=== PATIENT | male | born 1965 | race Caucasian/White ===

== ENCOUNTER 2021-08-21 13:30 | Emergency (ER) | payer BC, SELFPAY ==
[2021-08-21 13:53] VITALS: BP 162/115; PULSE 88; RESP 18; TEMP 36.8; O2SAT 100
--- NOTE | 2021-08-21 13:53 | ED.GENADULT ---
HPI - General Adult General Chief complaint: Unspecified Stated complaint: Medication Management Time Seen by Provider: 08/21/21 13:50 Source: patient Mode of arrival: ambulatory Limitations: no limitations History of Present Illness HPI narrative: Mono Messina is a 53 yo male with a PMH of diabetes, HTN, depression, who comes to express care for medication refills. He has not found a doctor that will take his current insurance. BP is elevated today on this visit. Patient is out of amlodipine and glyburide since May. Patient states he has a primary care physician but he does not take his insurance; has not taken medication since being in May Related Data Home Medications Medication Instructions Recorded Confirmed amlodipine-benazepril 1 cap PO DAILY 08/21/21 08/21/21 duloxetine 30 mg PO DAILY 08/21/21 08/21/21 glimepiride 1 mg PO DAILY 08/21/21 08/21/21 metformin 1,000 mg PO BID 08/21/21 08/21/21 Allergies Allergy/AdvReac Type Severity Reaction Status Date / Time No Known Allergies Allergy Verified 08/21/21 13:50 Review of Systems Review of Systems: CONSTITUTIONAL: Denies fever, chills, sweats. EYES: Denies visual changes, redness, discharge. ENT: Denies rhinorrhea, congestion, sore throat, otalgia. CARDIOVASCULAR: Denies chest pain, palpitations, edema. RESPIRATORY: Denies dyspnea, wheezing, cough GASTROINTESTINAL: Denies abdominal pain, nausea, vomiting, diarrhea. GENITOURINARY: Denies dysuria, hematuria, abnormal discharge SKIN: Denies rash or itching. NEUROLOGIC: Denies numbness, or focal weakness. PSYCHIATRIC: Denies anxiety or depression. Patient here for medication refill PMFSH Past Medical History Medical History Depression Diabetes HTN (hypertension) Comments At time of signature, I agree with nursing past medical, surgical, social and family history. There is no relevant family history pertinent to the presenting complaint. Exam Narrative: GENERAL: This is a well-nourished, well-developed patient, anxious HEAD: normocephalic, atraumatic. EYES: P Sclera clear/white. Vision is grossly intact. EARS: External ears normal, Hearing grossly intact. NOSE: External nose normal without nasal discharge, nares without redness, no rhinorrhea. THROAT: Mucous membranes moist, NECK: Neck supple, non-tender CARDIOVASCULAR: Regular rate and rhythm without murmurs, gallops, or rubs. RESPIRATORY: Clear to auscultation. Breath sounds equal bilaterally. No wheezes, rales, or rhonchi. GASTROINTESTINAL: Not done SKIN: warm, intact with no suspicious lesions or rash, good texture and turgor. NEURO: awake, alert, and oriented to person, place and time. There were no obvious focal neurologic abnormalities. Steady gait EXTREMITIES: Normal range of motion. BACK: Nontender without deformity Course Course Emergency Course: Patient here for medication refill Amlodipine+ Benzapril, amaryl,refilled for 1 month, metformin refilled for 2 weeks (has pills left) Given list of physicans to try tp get appt Level of Care: Express Care Visit Vital Signs Vital signs: Vital Signs Temperature 98.2 F 08/21/21 13:53 Pulse Rate 88 08/21/21 13:53 Respiratory Rate 18 08/21/21 13:53 Blood Pressure 162/115 H 08/21/21 13:53 Pulse Oximetry 100 08/21/21 13:53 Temperature 98.2 F 08/21/21 13:53 Pulse Rate 88 08/21/21 13:53 Respiratory Rate 18 08/21/21 13:53 Blood Pressure 162/115 H 08/21/21 13:53 Pulse Oximetry 100 08/21/21 13:53 Medical Decision Making Differential Diagnosis Differential Diagnosis: Medication refill Vital Signs Vital Signs: Vital Signs Temperature 98.2 F 08/21/21 13:53 Pulse Rate 88 08/21/21 13:53 Respiratory Rate 18 08/21/21 13:53 Blood Pressure 162/115 H 08/21/21 13:53 Pulse Oximetry 100 08/21/21 13:53 Temperature 98.2 F 08/21/21 13:53 Pulse Rate 88 08/21/21 13:53 Respiratory R
== END 2021-08-21 14:15 | disposition home or self-care (01) ==
PROVIDERS: Emergency Provider Nurse Practitioner
DX: Z76.0 Encounter for issue of repeat prescription (principal)
CPT/HCPCS: 99202; 99203; G0463

== ENCOUNTER 2022-09-16 09:53 | Outpatient (CLI) | payer BC, MEDICAID, SELFPAY ==
[2022-09-16 13:11] LABS: LDL Cholesterol Direct 83 mg/dL
[2022-09-16 13:18] LABS: Alanine Aminotransferase 36 U/L (6-50); Albumin Level 4.1 g/dL (3.5-5.1); Alkaline Phosphatase 106 U/L (38-126); Anion Gap 8 mmol/L (8-16); Aspartate Amino Transferase 37 U/L (17-59); Bilirubin,Total 0.6 mg/dL (0.2-1.3); Blood Urea Nitrogen 14 mg/dL (9-20); Calcium 8.1 mg/dL (8.4-10.2); Carbon Dioxide 28 mmol/L (22-30); Chloride 97 mmol/L (98-107); Cholesterol 176 mg/dL (0-200); Estimated Glomerular Filt Rate > 60; Glucose 252 mg/dL (65-110); HDL Direct 46 mg/dL; Potassium 3.7 mmol/L (3.4-5.0); Sodium 133 mmol/L (137-145)
[2022-09-16 13:26] LABS: Prostate Specific Antigen 0.6 ng/mL (< OR = 4.0)
[2022-09-16 13:39] LABS: Triglycerides 253 mg/dL (<150)
[2022-09-16 20:40] LABS: Hemoglobin A1C 7.3 % (<5.7)
== END 2022-09-16 09:54 | disposition home or self-care (01) ==
LOC: ANHGOSHLAB 09:55
PROVIDERS: PCP Family Medicine; Visit Provider Family Medicine
DX: E11.9 Type 2 diabetes mellitus without complications (principal); I10 Essential (primary) hypertension; Z12.5 Encounter for screening for malignant neoplasm of prostate; Z13.220 Encounter for screening for lipoid disorders
CPT/HCPCS: 36415; 80053; 80061; 83036; 84153; G0103

== ENCOUNTER 2023-03-23 14:31 | Outpatient (CLI) | payer BC, SELFPAY ==
[2023-03-23 15:20] LABS: Hematocrit 37.1 % (42.0-52.0); Hemoglobin 12.1 g/dL (14.0-18.0); Mean Corpuscular HGB Conc 32.6 g/dl (32-36); Mean Corpuscular Hemoglobin 26.4 pg (26-34); Mean Platelet Volume 9.3 fl (7.4-10.4); Platelet Count Result 275 k/mm3 (150-375); Red Blood Count 4.58 M/mm3 (4.6-6.20); Red Cell Distribution Width 15.4 % (11.5-14.5); White Blood Count 5.6 K/mm3 (4.5-10.0)
[2023-03-23 15:32] LABS: Alanine Aminotransferase 53 U/L (6-50); Albumin Level 4.4 g/dL (3.5-5.1); Alkaline Phosphatase 114 U/L (38-126); Anion Gap 9 mmol/L (8-16); Aspartate Amino Transferase 49 U/L (17-59); Bilirubin,Total 0.7 mg/dL (0.2-1.3); Blood Urea Nitrogen 8 mg/dL (9-20); Calcium 9.4 mg/dL (8.4-10.2); Carbon Dioxide 27 mmol/L (22-30); Chloride 100 mmol/L (98-107); Estimated Glomerular Filt Rate > 60; Glucose 174 mg/dL (65-110); Potassium 3.6 mmol/L (3.4-5.0); Sodium 136 mmol/L (137-145)
[2023-03-23 15:37] LABS: INR 0.9; Prothrombin Time 12.8 Seconds (11.1-14.7)
[2023-03-23 16:12] LABS: HIV 1/2 Ab P24 Ag Result Negative (Negative)
[2023-03-23 16:39] LABS: Folic Acid 6.1 ng/mL (2.76->20)
[2023-03-23 17:13] LABS: Iron 54 ug/dL (49-181)
[2023-03-23 17:28] LABS: Percent Iron Saturation 12 % (20-50)
[2023-03-23 18:02] LABS: Hepatitis B Surface Antigen Negative (Negative)
[2023-03-23 18:08] LABS: HAV RESULT Negative (Negative); Hepatitis B Core IgM Result Negative (Negative)
[2023-03-23 18:42] LABS: Hepatitis B Surface Anti Res Positive; Hepatitis C Virus Antibody Negative (Negative)
[2023-03-25 20:08] LABS: Hepatitis A Antibody Total Nonreactive (Nonreactive)
[2023-03-26 09:29] LABS: Alpha-1-Antitrypsin, QN 179 mg/dL (83-199); Ceruloplasmin 34 mg/dL (18-36)
[2023-03-27 21:10] LABS: Actin Antibody (IgG) <20 U (<20)
[2023-03-28 20:25] LABS: Mitochondrial (M2) Ab (IgG) <=20.0 U (<=20.0)
[2023-03-29 20:51] LABS: LKM 1 Antibody <=20.0 U (<=20.0)
[2023-03-30 15:02] LABS: ALT 37 U/L (9-46); Alpha Fetoprotein Tumor Marker 4.2 ng/mL (<6.1); Alpha-2-Macroglobulin 198 mg/dL (106-279); Apolipoprotein A1 171 mg/dL (94-176); Fibrosis Stage F0; GGT 115 U/L (3-85); Haptoglobin 204 mg/dL (43-212); Necroinflammat Act Grade A0; Total Bilirubin 0.1 mg/dL (0.2-1.2)
== END 2023-03-23 14:32 | disposition home or self-care (01) ==
LOC: ANHLAB 14:33
PROVIDERS: PCP Family Medicine; Visit Provider Nurse Practitioner
DX: K74.60 Unspecified cirrhosis of liver (principal); R93.2 Abnormal findings on diagnostic imaging of liver and biliary tract; R16.1 Splenomegaly, not elsewhere classified; D73.89 Other diseases of spleen; K92.0 Hematemesis; R93.89 Abnormal findings on diagnostic imaging of other specified body structures
CPT/HCPCS: 36415; 80053; 80074; 81596; 82103; 82105; 82390; 82607; 82728; 82746; 83520; 83540; 83550; 85027; 85610; 86038; 86364; 86376; 86703; 86706; 86708; G0432

== ENCOUNTER 2023-04-04 01:39 | Day surgery (SDC) | payer BC, SELFPAY ==
[2023-03-25 14:14] VITALS: BMI 30.5
--- NOTE | 2023-04-01 10:47 | SUR.PREOP ---
Patient called regarding upcoming procedure. Reviewed preop instructions, appointment times, and procedure prep.
[2023-04-04 07:53] VITALS: BP 134/103; PULSE 102; RESP 18; TEMP 36.3; O2SAT 99; BMI 29.8
[2023-04-04 07:57] LABS: Glucose Point of Care 129 mg/dl (65-105)
[2023-04-04] MEDS: LACTATED RINGERS 1,000 ML 150 ML IV CONT (08:08)
--- NOTE | 2023-04-04 08:48 | WPDHPUPDATE1 ---
History and Physical Update Update Date/Time: 04/04/23 08:48 History and Physical has been reviewed, including an updated exam of the patient. There are NO changes in the patient's condition. Risks, benefits, and alternatives have been discussed and questions answered. Patient agrees to proceed with procedure.
--- NOTE | 2023-04-04 08:49 | WPDANESEPPF ---
Anes - Initial Pre Proc Eval Procedure: Operation Date: 04/04/23 09:00 Proposed Procedures p Esophagogastroduodenoscopy & Colonoscopy - Noah Wisdom MD Date/Time: 04/04/23 08:49 Surgeon: Noah Wisdom MD Pre Op Diagnosis: neoplasm screening,Hematemesis Patient Data Age: 57 Gender: M Height: 1.7 m Weight: 86.4 kg Last Vital Signs Temp 97.4 F L 04/04/23 07:53 Pulse 102 H 04/04/23 07:53 Resp 18 04/04/23 07:53 BP 134/103 H 04/04/23 07:53 Pulse Ox 99 04/04/23 07:53 O2 Del Method Room Air 04/04/23 07:53 Allergies Allergy/AdvReac Type Severity Reaction Status Date / Time No Known Allergies Allergy Verified 04/04/23 07:52 Home Medications Medication Instructions Recorded Confirmed Type glimepiride 1 mg tablet 1 mg PO DAILY #90 tabs 10/07/22 04/04/23 Rx metformin 500 mg tablet 1,000 mg PO BID #360 tabs 12/27/22 04/04/23 Rx empagliflozin 10 mg tablet 10 mg PO DAILY #30 tabs 01/18/23 04/04/23 Rx (Jardiance) sildenafil 25 mg tablet 25 mg PO DAILY PRN sexual activity 02/14/23 04/04/23 Rx #30 tabs pantoprazole 40 mg tablet,delayed 40 mg PO BID #60 tabs 03/23/23 04/04/23 Rx release amlodipine 5 mg-benazepril 10 mg 1 cap PO DAILY #30 caps 03/25/23 04/04/23 Rx capsule duloxetine 30 mg capsule,delayed 30 mg PO DAILY #30 caps 03/25/23 04/04/23 Rx release Laboratory Tests 04/04/23 07:55 POC Capillary Glucose 129 H mg/dl (65-105) Patient hx anesthesia problems: none Family hx anesthesia problems: none Results Review: All pre-operative results and documents have been reviewed as part of the pre-operative evaluation. [facility] Past Medical History Medical History (Updated 03/23/23 @ 14:54 by Yanira Day APRN) Abnormal finding on imaging Abnormal finding on imaging of liver Alcohol abuse BMI 29.0-29.9,adult Coffee ground emesis Colon cancer screening Depression Diabetes Dysphagia GERD (gastroesophageal reflux disease) Hiatal hernia HTN (hypertension) Splenic lesion Splenomegaly Family History Family History (Updated 03/23/23 @ 13:42 by MELITA Stubbs) Father Diabetes mellitus Cerebrovascular accident CHF (congestive heart failure) Obesity Mother Diabetes mellitus Tobacco abuse Sibling Breast cancer Social History Social History (Updated 03/23/23 @ 13:43 by MELITA Stubbs) Years smoked: 30 Smoking status: Light tobacco smoker Tobacco type: cigarettes Second hand tobacco smoke exposure: Yes Additional smoking assessment comments: smokes when drinking; 0.5-1 pack per week Alcohol intake: current Drinks per week: 14 Alcohol use details: 6-8 beers plus vodka two times weekly Substance use: never Substance use type: does not use Lack of Transportation: No Lack of Food: Never True Current Housing: I Have Housing Concerned About Future Housing: No Difficulty Paying Gas/Electric Bills: No Difficulty Paying for Meds: No Currently Unemployed: No Education: High School Diploma/GED Difficulty w/ Childcare or Family Care: No Living arrangements: with friend(s) Additional living arrangements comments: lives with girlfriend Tesha Occupation/Education: occupation Additional occupation/education comments: [employer] Gender identity (if verbalized by the patient): Male Spiritual care concerns: No Anes - Eval Final PreProcedure Day of Procedure 04/04/23 08:49 Patient weight: normal Heart: regular rate and rhythm Lungs: clear to auscultation Airway: Mallampati scale class II Neurological: alert and oriented Last oral intake: >/= 8 hours ASA classification: III Emergent: no Anesthetic plan: proceed Anesthesia type and monitoring: general GIVS and standard monitoring Results Review: All pre-operative results and documents have been reviewed as part of the pre-operative evaluation. Informed Consent: The meir
--- NOTE | 2023-04-04 09:14 | SUR.OPER ---
EGD: [phone] [phone] COLON: [id number]
[2023-04-04 09:15] VITALS: BP 113/85; PULSE 97; RESP 27; O2SAT 98
[2023-04-04 09:25] VITALS: BP 116/89; PULSE 90; RESP 20; O2SAT 95
[2023-04-04 09:35] VITALS: BP 138/99; PULSE 77; RESP 17; O2SAT 99
== END 2023-04-04 09:40 | disposition home or self-care (01) ==
PROVIDERS: PCP Family Medicine; Visit Provider Internal Medicine Gastroenterology
PROC: 0DJ08ZZ Inspection of Upper Intestinal Tract, Via Natural or Artificial Opening Endoscopic (ICD-10-PCS; CPT 43235; principal; 2023-04-04 09:00)
DX: Z12.11 Encounter for screening for malignant neoplasm of colon (principal); K29.50 Unspecified chronic gastritis without bleeding; K21.00 Gastro-esophageal reflux disease with esophagitis, without bleeding; K57.30 Diverticulosis of large intestine without perforation or abscess without bleeding; K64.8 Other hemorrhoids; K44.9 Diaphragmatic hernia without obstruction or gangrene; F32.A Depression, unspecified; E11.9 Type 2 diabetes mellitus without complications; I10 Essential (primary) hypertension; F17.210 Nicotine dependence, cigarettes, uncomplicated; Z79.84 Long term (current) use of oral hypoglycemic drugs; Z82.49 Family history of ischemic heart disease and other diseases of the circulatory system; Z80.3 Family history of malignant neoplasm of breast
CPT/HCPCS: 43239; 45385; 82948; 88305; J2704; J7120

== ENCOUNTER 2024-08-11 10:24 | Outpatient (CLI) | payer OTHER, SELFPAY ==
--- OUTSIDE RECORDS SUMMARY | 2024-08-11 10:27 | XMS_ITS | Clinical Summary ---
Author Organization [facility] Address [facility] [place] [address] Care Team Providers Care Chemical Operator Name Role Phone None, Provider MD Primary Care Provider Unavaila ble Allergies No known active allergies Medications diclofenac sodium (VOLTAREN) 1 % gelIndications:Arthra lgia of right acromioclavicular joint,Shoulder blade pain Apply 2 g topically 4 (four) times daily. 2 g 08/05/19 25 Active lidocaine 4 % patch Place 1 patch onto the skin daily for 5 days. Remove & Discard patch within 12 hours or as directed by 5 patch 08/05/19 25 025 Encounters Date Type Department Care Team Description 08/04/2024 10:04 AM CDT - 08/04/2024 1:25 PM CDT Emergency [facility] Emergency Room [address] [place] [address] Pily Pagan MD Shoulder Pain Discharge Disposition: Home or Self Care (Routine Discharge) 08/04/2024 Travel from Last 3 Months Social History Tobacco Use Types Packs/Day Years Used Date Smoking Tobacco: Some Days Cigarettes Smokeless Tobacco: Never Tobacco Cessation:Ready to Q uit: Not Asked; Counseling Given: Not Answered Alcohol Use Standard Drinks/Week Comments Yes 0 (1 standard drink = 0.6 oz pur e alcohol) socially Sex and Gender Information Value Date Recorded Sex Assigned at Male 08/04/2024 10:24 AM CDT Legal Sex Male 7:02 PM CDT Gender Identity Male 08/04/2024 10:24 AM CDT Sexual Orientation Not on file Last Filed Vital Signs Vital Sign Reading Time Taken Comments Blood Pressure 164/106 08/04/2024 10:18 AM CDT Pulse 105 08/04/2024 10:18 AM CDT Temperature 36.7 C (98 F) 08/04/2024 10:18 AM CDT Respiratory Rate 16 08/04/2024 10:18 AM CDT Oxygen Saturation 98% 08/04/2024 10:18 AM CDT Inhaled Oxygen Concentration - - Weight 86.2 kg (190 lb) 08/04/2024 10:18 AM CDT Height 172.7 cm (5' 8 ) 08/04/2024 10:18 AM CDT Body Mass Index 28.89 08/04/2024 10:18 AM CDT Plan of Treatment Health Maintenance Due Date Last Done Comments Colorectal Cancer Screening Colonoscopy (10 Years) 1965 Annual Physical 1968 Pneumococcal Vaccine: Pediat rics (0 to 5 Years) and At-Risk Patients (6 to 64 Years) (1 of 2 - PCV) 11/03/1971 Hepatitis C 11/03/1983 DTaP, Tdap and Td Vaccines ( 1 - Tdap) 1984 Hepatitis B Vaccines (1 of 3 - 19+ 3-dose series) 1984 Zoster Vaccines (1 of 2) 11/03/2015 COVID-19 Vaccine (2 - 2023-2 5 season) 2024 07/22/2020 Influenza Adult (#1) 2024 PHQ-2 (Physician Antigo) 05/16/2024 Meningococcal B Vaccine Aged Out No l onger eligible based on patient's age to complete this topic Meningococcal Vaccine Aged Out No lady brittnee eligible based on patient's age to complete this topic RSV Immunizations Under 20 Months Aged Out No longer eligible based on patient's age to complete this topic Procedures Procedure Name Priority Date/Time Associated Diagnosis Comments D-DIMER, QUANTITATIVE Routine 08/04/2024 11:08 AM CDT XR CHEST PA+LAT STAT 08/04/2024 10:42 AM CDT XR SHOULDER RT MIN 2V STAT 08/04/2024 10:42 AM CDT from Last 3 Months Results * D-DIMER, QUANTITATIVE (08/04/2024 11:08 AM CDT) D-DIMER 458 0 - 500 ng{FEU}/mL 08/04/2024 12:22 PM CDT [facility] Comment: D-Dimer values less than or equal to 500 ng/mL FEU have a negative predictive value of >95% for exclusion of deep vein thrombosis and pulmonary embolism. In patients over 50 (who tend to have higher normal baseline D-Dimer values), recent studies suggest age-adjusted D-Dimer cutoff values (calculated as: age [years] x 10 ng/mL) result in equivalent outcomes and no additional false negative findings. 08/04/2024 11:0 8 AM CDT us Pily aPgan MD LABORATORY Final Resul t [facility] [address] [place] [address], [place] [phone] * XR CHEST PA+LAT (08/04/2024 10:42 AM CDT) Anatomical Region Laterality Modality Chest Radiographic Viola ging 08/04/2024 10:4 4 AM CDT Impressions 08/04/2024 10:45 AM CDT IMPRESSION: 1) No radiographic evidence of active disease the chest. Ordered By: PILY PAGAN Interpreted By: Luis Enrique Licea MD, 08/04/2024 10:44 AM Narrative 08/04/2024 10:45 AM CDT [address] [address] Examination: XR CHEST PA+LAT Exam time: 08/04/2024 10:42 AM Clinical history: Shoulder pain Comparison: None Technique: PA and lateral Findings: Shallow inspiration. Heart size within normal limits. Pulmonary vasculature does not appear congested. No acute pulmonary parenchymal opacity. No pleural effusion. No hyperinflation. Procedure Note Luis Enrique Licea MD - 08/04/2024 [place] [address] Examination: XR CHEST PA+LAT Exam time: 08/04/2024 10:42 AM Clinical history: Shoulder pain Comparison: None Technique: PA and lateral Findings: Shallow inspiration. Heart size within normal limits. Pulmonaryvasculature does not appear congested. No acute pulmonary parenchymalopacity. No pleural effusion. No hyperinflation. IMPRESSION: 1) No radiographic evidence of active disease the chest. Ordered By: PILY PAGAN Interpreted By: Luis Enrique Licea MD, 08/04/2024 10:44 AM us Pily Pagan MD GENERAL IMAGING Final Resul t * XR SHOULDER RT MIN 2V (08/04/2024 10:42 AM CDT) Anatomical Region Laterality Modality Shoulder Radiographic Viola ging 08/04/2024 10:4 4 AM CDT Impressions 08/04/2024 10:46 AM CDT IMPRESSION: No acute cardiopulmonary abnormality. Referred By: Interpreted By: Fredy Rowland MD, 08/04/2024 10:44 AM Narrative 08/04/2024 10:[place] [address] Procedure(s): XR SHOULDER RT MIN 2V Date of service: 08/04/2024 10:42 AM Provided clinical information: 58 years, Male, pain Procedure and materials: 2 views right shoulder. Comparison studies: None. Findings: Laterally downsloping acromion. Inferior AC joint osteophytes. No fracture, dislocation or acute bony amount about the right shoulder. Procedure Note Fredy Rowland MD - 08/04/2024 [facility] [address] [place] [address] Procedure(s): XR SHOULDER RT MIN 2V Date of service: 08/04/2024 10:42 AM Provided clinical information: 58 years, Male, pain Procedure and materials: 2 views right shoulder. Comparison studies: None. Findings: Laterally downsloping acromion. Inferior AC joint osteophytes. No fracture, dislocation or acute bony amount about the right shoulder. IMPRESSION: No acute cardiopulmonary abnormality. Referred By: Interpreted By: Fredy Rowland MD, 08/04/2024 10:44 AM Pily Pagan MD GENERAL IMAGING Final Resul t from Last 3 Months Insurance GRAV Care Teams Chemical Operator Relationship Specialty Start Date End Date None, ProviderMD PCP - General UNKNOWN PHYSICIAN SPECIALTY 08/04/24
--- OUTSIDE RECORDS SUMMARY | 2024-08-11 10:27 | XMS_ITS | Clinical Summary ---
Author Organization [facility] Address [address] [place] [address] Care Team Providers Care Meter Repairer Name Role Phone Unavailable Primary Care Provider Unavailabl e Source Comments [facility],non-owned Affiliates and Associated Physician Practices is amultiple site organization consisting of ambulatory clinics and hospital sitesin [place], [place], [place]. This disclosure is being madepursuant to the Care Everywhere program and may not contain all information available regarding this patient. Last updated 18.[facility] Active Problems Problem Noted Date Diagnosed Date Major depressive disorder, single episode 2015 Family History Medical History Relation Name Comments Alcohol abuse Father Diabetes Father Alcohol abuse Mother Depression Mother Diabetes Mother Relation Name Status Comments Father Mother Social History Tobacco Use Types Packs/Day Years Used Date Smoking Tobacco: Some Days Cigarettes Alcohol Use Standard Drinks/Week Comments Yes 2.5 (1 standard drink = 0.6 oz p ure alcohol) Sex and Gender Information Value Date Recorded Sex Assigned at Not on file Gender Identity Not on file Sexual Orientation Not on file Last Filed Vital Signs Vital Sign Reading Time Taken Comments Blood Pressure 123/93 07/17/2015 9:00 AM ECONOMICS LECTURER Pulse 65 07/17/2015 9:00 AM ECONOMICS LECTURER Temperature 36.7 C (98 F) 07/16/2015 7:57 AM ECONOMICS LECTURER Respiratory Rate 16 07/17/2015 9:00 AM ECONOMICS LECTURER Oxygen Saturation 98% 07/17/2015 9:00 AM ECONOMICS LECTURER Inhaled Oxygen Concentration - - Weight 85.3 kg (188 lb) 07/15/2015 8:07 AM ECONOMICS LECTURER Height - - Body Mass Index - - Plan of Treatment Health Maintenance Due Date Last Done Comments COLOGUARD (AGES 45-75) - COL ON CA SCREENING 1965 COLON MONITORING 1965 COLONOSCOPY - COLON CA SCREENING 1965 CT COLONOGRAPHY - COLON CA SCREENING 1965 Colorectal Cancer Screening 1965 FIT - COLON CA SCREENING 1965 FLEX SIG - COLON CA SCREENING 1965 LIPID TESTING 1965 HIV SCREENING 1980 HEPATITIS C SCREENING 10/29/1983 DTAP/TDAP/TD VACCINES (1 - Tdap) 1984 HEPATITIS B VACCINE (1 of 3 - 19+ 3-dose series) 1984 PNEUMOCOCCAL VACCINE 50+ (1 of 2 - PCV) 1984 PNEUMOCOCCAL VACCINE (1 of 2 - PCV) 1984 ZOSTER VACCINE (1 of 2) 11/03/2015 COVID-19 VACCINE (1 - 2023-2 5 season) 2024 INFLUENZA VACCINE (#1) 2024 DEPRESSION SCREENING 05/16/2024 HIB VACCINE Aged Out No longer eligi ble based on patient's age to complete this topic HPV VACCINE Aged Out No longer eligi ble based on patient's age to complete this topic MENINGOCOCCAL (Group B) VACC INE SHARED DECISION-MAKING Aged Out No longer eligibl e based on patient's age to complete this topic MENINGOCOCCAL GROUPS A/C/Y/W VACCINE Aged Out No longer eligible b ased on patient's age to complete this topic
[2024-08-11 11:01] LABS: Hemoglobin A1C 12.2 % (<5.7)
[2024-08-11 11:03] LABS: Alanine Aminotransferase 115 U/L (6-50); Albumin Level 4.6 g/dL (3.5-5.1); Alkaline Phosphatase 121 U/L (38-126); Anion Gap 14 mmol/L (4-12); Aspartate Amino Transferase 197 U/L (17-59); Bilirubin,Total 0.7 mg/dL (0.2-1.3); Blood Urea Nitrogen 8 mg/dL (9-20); Calcium 8.8 mg/dL (8.4-10.2); Carbon Dioxide 22 mmol/L (22-30); Chloride 100 mmol/L (98-107); Cholesterol 260 mg/dL (0-200); Estimated Glomerular Filt Rate > 60; Glucose 273 mg/dL (65-110); HDL Direct 47 mg/dL; Potassium 3.9 mmol/L (3.4-5.0); Sodium 136 mmol/L (137-145); Triglycerides 495 mg/dL (<150)
[2024-08-11 11:05] LABS: Creatinine Urine 88.3 mg/dL
[2024-08-11 11:14] LABS: LDL Cholesterol Direct 87 mg/dL
[2024-08-11 11:20] LABS: MALB Creatinine Ratio 96.6 mg/g (0-30); Microalbumin Urine Random 85.3 mg/L (0-16.7)
[2024-08-11 11:34] LABS: Prostate Specific Antigen 0.3 ng/mL (< OR = 4.0)
== END 2024-08-11 10:25 | disposition home or self-care (01) ==
LOC: ANHLAB 10:26
PROVIDERS: PCP Family Medicine; Visit Provider Family Medicine
DX: E11.9 Type 2 diabetes mellitus without complications (principal); R35.0 Frequency of micturition
CPT/HCPCS: 36415; 80053; 80061; 82043; 83036; 84153